=== PATIENT | female | born 1985 | race Caucasian/White ===

== ENCOUNTER 2017-04-01 10:26 | Emergency (ER) | payer BC ==
[2017-04-01] MEDS ORDERED: IOHEXOL 300MG/ML 100 ML VIAL PO ONE ×2 (10:27)
--- NOTE | 2017-04-01 10:59 | ED Physician Chart ---
ED Chief Complaint/HPI - Patient Information Date Seen:: 04/01/17 Time Seen:: 10:53 Chief Complaint:: abdominal pain History of Present Illness:: THIS IS A 32 YEAR OLD FEMALE WITH THREE DAYS OF NAUSEA AND VOMITING ASSOCIATED WITH ABDOMINAL PAIN. SHE IS CONCERN ABOUT GETTING WEAKER FROM VOMITING. SHE ADMITS TO SMOKING THC AND CIGS. SHE DENIES DRINKING . SHE STATES THAT SHE HAD HER GALLBLADDER REMOVED, A OBESITY SURGERY AND A TOTAL HYSTERECTOMY. SHE ALSO HAS AN ANXIETY DISORDER. SHE DENIES CONSTIPATION AND DIARRHEA. Allergies:: Allergies Allergy/AdvReac Type Severity Reaction Status Date / Time No Known Allergies Allergy Verified 01/25/16 10:15 Vitals:: Vital Signs - 8 hr 04/01/17 10:43 Temp 97.3 F HR 89 RR 17 BP 128/85 O2 Sat % 99 Historian:: Patient Review:: Nurse's Note Reviewed, Old Chart Reviewed ED Review of Systems - Review of Systems General/Constitutional: No fever, No chills, No weight loss, Weakness, No diaphoresis, No edema, No loss of appetite Skin: No skin lesions, No rash, No bruising Head: No headache, No light-headedness Eyes: No loss of vision, No pain, No diplopia ENT: No earache, No nasal drainage, No sore throat, No tinnitus Neck: No neck pain, No swelling, No thyromegaly, No stiffness, No mass noted Cardio Vascular: No chest pain, No palpitations, No PND, No orthopnea, No edema Pulmonary: No SOB, No cough, No sputum, No wheezing GI: Nausea, Vomiting, No diarrhea, Pain, No melena, No hematochezia, No constipation, No hematemesis G/U: No dysuria, No frequency, No hematuria Musculoskeletal: No bone or joint pain, No back pain, No muscle pain Endocrine: No polyuria, No polydipsia Psychiatric: Prior psych history, Depression, Anxiety, No suicidal ideation Hematopoietic: No bruising, No lymphadenopathy Allergic/Immuno: No urticaria, No angioedema Neurological: No syncope, No focal symptoms, No weakness, No paresthesia, No headache, No seizure, No dizziness, No confusion, No vertigo ED Past Medical History - Past Medical History Obtainable: Yes Past Medical History: Other (DRUG ABUSE, DEPRESSION, ANXIETY) Family History: HTN Social History: Smoker, No Alcohol, Illicit Drug Use, Surgical History: Cholecystectomy, Hysterectomy, other (BY PASS SURGERY FOR OBESITY) Family Medical History - Family Member Mother History Unknown: Yes Ethnicity: Non- Living Status: Hx Family Cancer: Yes Hx Family Hypertension: Yes ED Physical Exam - Physical Examination General/Constitutional: Awake, Well-developed, well-nourished, Alert, No distress, GCS 15, Non-toxic appearing, Ambulatory Head: Atraumatic Eyes: Lids, conjuctiva normal, PERRL, EOMI Skin: Nl inspection, No rash, No skin lesions, No ecchymosis, Well hydrated, No lymphadenopathy ENMT: External ears, nose nl, Nasal exam nl, Lips, teeth, gums nl Neck: Nontender, Full ROM w/o pain, No JVD, No nuchal rigidity, No bruit, No mass, No stridor Respiratory: Nl effort/Exclusion, Clear to Auscultation, No Wheeze/Rhonchi/Rales Cardio Vascular: RRR, No murmur, gallop, rubs, NL S1 S2 GI: No tenderness/rebounding/guarding (MILD DIFFUSE TENDERNESS OF THE ABDOMEN), No organomegaly, No hernia, Normal BS's, Nondistended, No mass/bruits, No McBurney tenderness : No CVA tenderness Extremities: No tenderness or effusion, Full ROM, normal strength in all extremities, No edema, Normal digits & nails Neuro/Psych: Alert/oriented, DTR's symmetric, Normal sensory exam, Normal motor strength, Judgement/insight normal, Mood normal, Normal gait, No focal deficits Misc: normal gait, Normal back, No paraspinal tenderness ED Labs/Radiology/EKG Results - Lab Results Results: Laboratory Tests 04/01/17 10:45 POC Ur Test Negative ED Assessment - Assessment General Assessment: ABDOMINAL PAIN ED Septic Shock - . Is Septic Shock (SBP<90, OR Lactate>4 mmol\L) present?: No - <6hrs of presentation: Vital Signs: Vital Signs - 8 hr 04/01/17 10:43 Temp 97.3 F HR 89 RR 17 BP 128/85 O2 Sat % 99 ED Reassessment (Disposition) - Reassessment Reassessment Condition:: Improved - Diagnosis Diagnosis:: ABDOMINAL PAIN - Aftercare/Follow up Instructions Aftercare/Follow-Up Instructions:: Counseled pt regarding lab results/diagnosis & need follow up, Refer to Discharge Instructions, Counseled pt & family regarding lab results/diagnosis & need follow up - Patient Disposition Discharge/Transfer:: Home Condition at Disposition:: Improved ED Discharge Plan - Patient Disposition Admit/Discharge/Transfer: PT DISCHARGED HOME Condition at Disposition: Improved Instructions: Abdominal Pain, Women, Anxiety and Panic Attacks, [id number], Diverticulosis Additional Instructions: TOLERATED.
[2017-04-01 11:05] LABS: % BASOPHILS 0.1 % (0.0-2.0); % EOSINOPHILS 0.7 % (0.0-5.0); % MONOCYTES 5.6 % (2.0-10.0); % NEUTROPHILS 72.6 % (40.0-80.0); HEMATOCRIT 43.9 % (41.0-60); HEMOGLOBIN 14.8 gm/dL (12-16); MEAN CELL VOLUME 94.3 fl (81-100); MEAN CORPUSCULAR HEMOGLOBIN 31.9 pg (27.0-31.0); MEAN CORPUSCULAR HGB CONC 33.8 pg (28.0-36.0); MEAN PLATELET VOLUME 7.6 fl; NEUTROPHILE ABSOLUTE 4.5 Th/cmm (1.8-8.0); PLATELET COUNT 330 Th/cmm (150-400); RED BLOOD COUNT 4.66 Mil/cmm (3.80-5.10); WHITE BLOOD COUNT 6.1 Th/cmm (4.8-10.8)
[2017-04-01] MEDS ORDERED: Sodium Chloride 0.9% 1,000 ML IV ONE (11:19)
[2017-04-01 11:27] LABS: ALB/GLOB RATIO 1.6 (1.0-1.8); ALKALINE PHOSPHATASE 88 U/L (34-104); ANION GAP 10.5 (7.0-16.0); BILIRUBIN,TOTAL 0.7 mg/dL (0.3-1.0); BUN - UREA NITROGEN 5 mg/dL (7-25); BUN/CREATININE RATIO 8.3; CALCIUM SERUM 9.6 mg/dL (8.6-10.3); CARBON DIOXIDE 25.2 mEq/L (21.0-31.0); CHLORIDE 108 mEq/L (98-107); CREATININE - SERUM 0.6 mg/dL (0.6-1.2); GLUCOSE 97 mg/dL (70-105); POTASSIUM SERUM 3.7 mEq/L (3.5-5.1); SGOT 14 U/L (13-39); SGPT/ALT 7 U/L (7-52); SODIUM SERUM 140 mEq/L (136-145)
[2017-04-01 11:28] LABS: CHOLESTEROL 154 mg/dL (<200); TRIGLYCERIDES 98 mg/dL (<150)
[2017-04-01 11:29] LABS: INR 1.01 (0.5-1.4); PROTHROMBIN TIME (TEST) 10.5 SECONDS (9.5-11.5)
--- NOTE | 2017-04-01 11:36 | Diagnostic Imaging Report ---
CHEST X-RAY: AP view INDICATION: Abdominal pain, shortness of breath COMPARISON: 01/25/2016 FINDINGS: Mild chronic lung changes are noted. There is no focal consolidation or pleural effusions The heart is normal in size. The osseous structures demonstrate no acute abnormalities. Postsurgical of the upper abdomen are noted. IMPRESSION: Mild chronic lung changes. No focal consolidation identified. Postsurgical changes of the upper abdomen. Please correlate clinically.
[2017-04-01 11:38] LABS: URINE BILIRUBIN NEGATIVE (NEGATIVE); URINE BLOOD NEGATIVE (NEGATIVE); URINE GLUCOSE (UA) NEGATIVE (NEGATIVE); URINE KETONE TRACE mg/dL (NEGATIVE); URINE PROTEIN NEGATIVE (NEGATIVE); URINE UROBILINOGEN 0.2 E.U./dL (0.2 - 1.0)
[2017-04-01 11:39] LABS: URINE COLOR YELLOW
[2017-04-01 11:46] LABS: URINE BACTERIA NONE SEEN /hpf (NONE SEEN); URINE EPITHELIAL CELLS FEW /lpf (FEW); URINE RBC 0-2 /hpf (0-5)
[2017-04-01 12:06] LABS: AMPHETAMINE URINE NEGATIVE (NEGATIVE); BARBITURATES URINE NEGATIVE (NEGATIVE); METHADONE URINE NEGATIVE (NEGATIVE)
--- NOTE | 2017-04-01 13:12 | Diagnostic Imaging Report ---
CT abdomen and pelvis with intravenous contrast Indication: Abdominal pain Comparison: CT lumbar spine the same day, Technique: Axial images were obtained from the lung bases to the bilateral proximal femurs with IV contrast. Coronal reconstructions were made. total DLP: 512, CTDI10.6 FINDINGS: Atelectatic and hypoventilatory changes of the lung bases are noted. No evidence of focal hepatic lesions. Noted in the hepatic dome is incompletely visualized. No focal splenic lesions. Borderline splenomegaly is noted. Patient is status post cholecystectomy. No focal pancreatic or adrenal lesions. No gross hydronephrosis or focal renal lesions. Distended urinary bladder is noted. The patient is status post gastric bypass surgery. Mild haziness is seen throughout the mesenteric fat planes. Diverticulosis is noted. Minimal haziness of the perisigmoid colonic planes is also noted. No evidence of free fluid or free air. No evidence of acute appendicitis. Mild degenerative changes of the spine are noted. IMPRESSION: Mild generalized haziness throughout the mesentery, significance uncertain, however, inflammatory process cannot be excluded. There is also minimal haziness of the perisigmoid colonic fat planes. Changes associated with minimal diverticulitis of the sigmoid colon cannot be excluded. No evidence of free fluid or free air Evidence of prior cholecystectomy and gastric bypass surgery. Borderline prominent spleen.
== END 2017-04-01 13:35 | disposition home or self-care (01) ==
LOC: ER 10:26
DX: R10.9 Unspecified abdominal pain (principal); F17.200 Nicotine dependence, unspecified, uncomplicated
CPT/HCPCS: 99285; 96372; 96374; 71010; 74177; 84484; 36415; 80307; 84443; 86592; 85025; 85610; 85730; 81001; 81025; 80053; 80061; Q0162; J1885; J2060; J7030; Q9967

== ENCOUNTER 2017-08-15 12:52 | Emergency (ER) | payer BC ==
--- NOTE | 2017-08-15 13:46 | ED Physician Chart ---
ED Chief Complaint/HPI - Patient Information Date Seen:: 08/15/17 Time Seen:: 13:30 Chief Complaint:: dizziness History of Present Illness:: 4 days ago the patient's dog ran into her and she fell forward striking her forehead on the concrete. She sustained loss of consciousness for an unknown period of time. She complains of feeling very dizzy, having slurred speech, and sleeping more than normal. She kept falling asleep yesterday and slept late this morning. She also has photophobia. Allergies:: Allergies Allergy/AdvReac Type Severity Reaction Status Date / Time No Known Allergies Allergy Verified 01/25/16 10:15 Historian:: Patient Review:: Nurse's Note Reviewed ED Review of Systems - Review of Systems General/Constitutional: Weakness Skin: No skin lesions Head: Headache Eyes: Other (photophobia) ENT: No earache, No nasal drainage, No tinnitus Cardio Vascular: No chest pain, No palpitations Pulmonary: No SOB, No sputum, No wheezing GI: No pain G/U: No dysuria Musculoskeletal: No bone or joint pain, No back pain, No muscle pain Psychiatric: No anxiety Hematopoietic: No bruising Allergic/Immuno: No urticaria Neurological: No syncope ED Past Medical History - Past Medical History Past Medical History: No significant medical hx Family History: None Social History: Smoker, No Alcohol, Other (smokes 4-5 cigarettes a day) Surgical History: other (hysterectomy; gastric sleeve; bilateral carpal tunnel) Psychiatricy History: None Medication: Reviewed Family Medical History - Family Member Mother History Unknown: Yes Ethnicity: Non- Living Status: Hx Family Cancer: Yes Hx Family Hypertension: Yes ED Physical Exam - Physical Examination General/Constitutional: Well-developed, well-nourished, Alert, No distress Head: Atraumatic Eyes: Lids, conjuctiva normal, PERRL Other Eyes comments:: Optic disc are sharp Skin: Nl inspection, No rash, No skin lesions, No ecchymosis, Well hydrated, No lymphadenopathy ENMT: External ears, nose nl, TM canals nl, Nasal exam nl, Lips, teeth, gums nl , Oropharynx nl, Tonsils nl Neck: No nuchal rigidity Respiratory: Nl effort/Exclusion, Clear to Auscultation, No Wheeze/Rhonchi/Rales Cardio Vascular: RRR, No murmur, gallop, rubs GI: No tenderness/rebounding/guarding, No organomegaly, No hernia, Normal BS's, Nondistended, No mass/bruits : No CVA tenderness Extremities: Normal digits & nails Neuro/Psych: Alert/oriented, No focal deficits ED Assessment - Assessment General Assessment: Explained to patient that she has signs of a concussion which can last another 2 weeks to 1 month. I also told patient that the chances that doing a CAT scan will mold insert changer is probably less than one in a [phone]. Explained to patient that an MRI is the best test but is unavailable to us. Patient agreed not to have a CAT scan done. Also told patient that if she really wanted a CAT scan I would do it for but I recommended not doing it. Patient agreed not to have a CAT scan. Suggested she ask her private physician to order an MRI. ED Septic Shock - . Is Septic Shock (SBP<90, OR Lactate>4 mmol\L) present?: No ED Reassessment (Disposition) - Reassessment Reassessment Condition:: Unchanged - Diagnosis Diagnosis:: Cerebral concussion; postconcussion syndrome - Patient Disposition Discharge/Transfer:: Home Condition at Disposition:: Stable, Unchanged
== END 2017-08-15 13:30 | disposition home or self-care (01) ==
LOC: ER 12:52
DX: S06.0X9A Concussion with loss of consciousness of unspecified duration, initial encounter (principal); F07.81 Postconcussional syndrome; F17.210 Nicotine dependence, cigarettes, uncomplicated; X58.XXXA Exposure to other specified factors, initial encounter; Y93.89 Activity, other specified; Y92.89 Other specified places as the place of occurrence of the external cause; Y99.8 Other external cause status
CPT/HCPCS: Z7502